=== PATIENT | female | born 1945 | race Caucasian/White ===

== ENCOUNTER 2018-07-10 14:24 | Emergency (ER) | payer BC, MEDICARE ==
[~2018-07-10] VITALS: Ht 160 cm; Wt 43.1 kg
[~2018-07-10 14:24] MED LIST: GLAT20KI3 SQ
[2018-07-10 14:28] VITALS: BP_SYST 111
[2018-07-10 16:43] VITALS: BP_SYST 108
== END 2018-07-10 16:43 | disposition home or self-care (01) ==
LOC: SED 14:24
DX: S93.402A Sprain of unspecified ligament of left ankle, initial encounter (principal); X58.XXXA Exposure to other specified factors, initial encounter; Y93.89 Activity, other specified; Y92.89 Other specified places as the place of occurrence of the external cause; Y99.8 Other external cause status
CPT/HCPCS: 99284